=== PATIENT | male | born 1995 | race Caucasian/White ===

== ENCOUNTER 2018-12-23 05:26 | Emergency (ER) | payer BC ==
[~2018-12-23] VITALS: Ht 172.7 cm; Wt 79.4 kg
--- NOTE | 2018-12-23 05:45 | NUR ---
PATIENT BIB [facility] FROM HOME FOR C/O WAKING UP WITH NECK PAIN 03/11 AT 0400 AND WEAKNESS ON ALL FOUR EXTREMITY 1.5HR BABY SITTER. PATIENT UNABLE TO STAND AND WEAKER ON LEFT SIDE. PATIENT STATES "I FEEL PIN AND NEEDLES ON MY ARMS AND LEG WHICH STARTED ABOUT 1HR AGO."
--- NOTE | 2018-12-23 06:07 | NUR ---
PATIENT OUT OF UNITFOR CT SCAN VIA GURNY
[2018-12-23 06:10] LABS: BASOPHILS % (AUTO) 0.5 % (0.0-2.0); EOSINOPHILS # (AUTO) 0.1 K/uL (0.0-0.7); HEMATOCRIT 44.3 % (36.7-47.1); HEMOGLOBIN 14.9 g/dL (12.5-16.3); LYMPHOCYTES # (AUTO) 1.3 K/uL (20.0-40.0); LYMPHOCYTES % (AUTO) 15.4 % (20.5-51.5); MEAN CORPUSCULAR HEMOGLOBIN 28.6 uug (23.8-33.4); MEAN CORPUSCULAR HGB CONC 34 g/dL (32.5-36.3); MONOCYTES # (AUTO) 0.8 K/uL (2.0-10.0); MONOCYTES % (AUTO) 9.5 % (0.0-11.0); NEUTROPHILS # (AUTO) 6.3 K/uL (1.8-8.9); NEUTROPHILS % (AUTO) 73.6 % (38.5-71.5); PLATELET COUNT (AUTO) 289 K/uL (152-348); RED BLOOD CELL COUNT(AUTO) 5.21 MIL/uL (4.06-5.63); WHITE BLOOD COUNT (AUTO) 8.6 K/uL (3.6-10.2)
[2018-12-23 06:14] LABS: CARBON DIOXIDE 26 mmol/L (21-32); CHLORIDE 104 mmol/L (98-107); CREATININE 0.6 mg/dL (0.6-1.3); GLUCOSE 122 mg/dL (74-106); POTASSIUM 3.9 mmol/L (3.5-5.1); UREA NITROGEN, BLOOD 9 mg/dL (7-18)
--- NOTE | 2018-12-23 06:15 | NUR ---
DR TREVINO SPOKE WITH DR HENSLEY FOR APPROVAL OF MRI
--- NOTE | 2018-12-23 06:17 | NUR ---
PATIENT BACK FROM CT SCAN WITH NO DISTRESS NOTED
[2018-12-23 06:25] LABS: ALANINE AMINOTRANSFERASE 36 U/L (16-63); ALKALINE PHOSPHATASE 103 U/L (50-136); ASPARTATE AMINOTRANSFERASE 23 U/L (15-37); BILIRUBIN,DIRECT 0.1 mg/dL (0.0-0.2); BILIRUBIN,TOTAL 0.5 mg/dL (0.2-1.0); TOTAL PROTEIN, SERUM 7.5 g/dL (6.4-8.2)
--- NOTE | 2018-12-23 06:37 | NUR ---
TEXTED DR. HENSLEY FOR MRI APPROVAL.
[2018-12-23] MEDS ORDERED: ONDANSETRON 4 MG/2 ML VIAL ONE (07:13)
[2018-12-23] MEDS ORDERED: MORPHINE SULFATE 2 MG/1 ML DISP.SYRIN ONE (07:13)
--- NOTE | 2018-12-23 07:15 | NUR ---
CALLED [facility]. ACLS ETA MONUMENT STONECUTTER IS BETWEEN [phone]. TRIP # [id number]
--- NOTE | 2018-12-23 07:15 | NUR ---
NURSING NOTE: PT NOTED C-SPINE ALIGNED. VERBALIZING DECREASE MOBILITY IN LOWER EXTREMITIES AND LEFT SIDE. COMPLAINT OF NECK PAIN NOTED. MEDICATION ADMINISTERED AND EFFECTIVE. MD AT BEDSIDE EVALUATING PATIENT. REPORT RECEIVED FROM TASIA LOZADA
[2018-12-23] MEDS ORDERED: DEXAMETHASONE SOD PHOSPHATE 10 MG INJ ONE (07:26)
[2018-12-23] MEDS ORDERED: DEXAMETHASONE SOD PHOSPHATE 4 MG INJ IV ONE (07:30)
[2018-12-23] MEDS ORDERED: PANTOPRAZOLE SODIUM 40 MG VIAL IV ONE (07:30)
[2018-12-23] MEDS ORDERED: ONDANSETRON 4 MG/2 ML VIAL IV ONE (07:30)
[2018-12-23] MEDS ORDERED: MORPHINE SULFATE 2 MG/1 ML DISP.SYRIN IV ONE (07:30)
--- NOTE | 2018-12-23 07:30 | NUR ---
NURSING NOTE: RECEIVED PHONE CALL FROM GOOD BARNETT REGARDING CLINICAL DOCUMENTATION OF PATIENT AND TO OK TRANSFER
[2018-12-23] MEDS ORDERED: PANTOPRAZOLE SODIUM 40 MG VIAL ONE (07:31)
--- NOTE | 2018-12-23 08:37 | NUR ---
NURSING NOTE: PT NOTED TO HAVE INCREASED MOVEMENT IN LOWER EXTREMITIES
== END 2018-12-23 09:35 | disposition short-term general hospital (02) ==
LOC: ER 05:29
DX: G82.50 Quadriplegia, unspecified (principal); Z88.0 Allergy status to penicillin; Z88.2 Allergy status to sulfonamides
CPT/HCPCS: 36415; 71045; 72125; 80048; 80076; 84484; 85025; 85730; 93005; 96374; 96375; 99291; C9113; J1100; J2270; J2405; 70030-TC; A4663

== ENCOUNTER 2020-12-12 16:14 | Emergency (ER) | payer BC ==
[~2020-12-12] VITALS: Ht 172.7 cm; Wt 75.7 kg
[2020-12-12] MEDS ORDERED: FLEXERIL (16:27)
--- NOTE | 2020-12-12 16:35 | NUR ---
at bedside for assessment
--- NOTE | 2020-12-12 17:09 | NUR ---
Patient discharged to home in stable condition. Able to ambulate with steady gait, no signs of acute distress. Written and verbal after care instructions given. Patient verbalizes understanding of instructions. Stressed follow up or return to ER for worsening s/s.
[2020-12-12 17:10] VITALS: BP 128/73
== END 2020-12-12 17:09 | disposition home or self-care (01) ==
LOC: ER 16:16
DX: R00.0 Tachycardia, unspecified (principal); Z88.0 Allergy status to penicillin; Z88.2 Allergy status to sulfonamides
CPT/HCPCS: 93005; A4663